=== PATIENT | male | born 1990 | race Caucasian/White ===

== ENCOUNTER 2019-08-29 17:28 | Emergency (ER) | payer SELFPAY ==
--- NOTE | 2019-08-29 19:45 | EDM.PDOCBH ---
ED HPI GENERAL MEDICAL PROBLEM - General Chief Complaint: Drug or Alcohol Abuse Stated Complaint: NEEDS HELP WITH DRUG PROBLEM Time Seen by Provider: 08/29/19 18:57 Source of Information: Reports: Patient History Limitations: Reports: No Limitations - History of Present Illness INITIAL COMMENTS - FREE TEXT/NARRATIVE: This is a 29-year-old male. For the last 4 to 5 years he has been hooked on dextromethorphan. He takes 30 mg tablets 12 of them at a time to get his buzz. He states he takes it 3-4 times a day. Every time he tries to it off the medications he has side effects of sinus congestion anxiety insomnia and just feels horrible and so he started taking them again. He is tried to wean himself off them but he has not been able to do so. Apparently his was able to get off the medication because she was also taking it with him but he is not able to get of it by his self. He comes to the ER because he wants help getting off this medication. He states that there is nothing else going on. He does not want to do inpatient treatment he wants to go home. He denies any recent illnesses colds coughs nausea vomiting. He does have some diarrhea recently because he has been overusing Mylanta because of his heartburn. Left Abdomen Pain Score (Numeric/FACES): 5 - Related Data Allergies Allergy/AdvReac Type Severity Reaction Status Date / Time No Known Allergies Allergy Verified 08/29/19 18:09 Past Medical History Psychiatric History: Reports: Addiction - Past Surgical History HEENT Surgical History: Reports: Oral Surgery Social & Family History - Tobacco Use Smoking Status *Q: Current Every Day Smoker Years of Tobacco use: 13 Packs/Tins Daily: 0.2 - Caffeine Use Caffeine Use: Reports: None - Recreational Drug Use Recreational Drug Use: Yes Drug Use in Last 12 Months: Yes Other Recreational Drug Type: cold medicine Recreational Drug Use Frequency: Daily ED ROS GENERAL - Review of Systems Review Of Systems: See Below Constitutional: Denies: Fever, Chills HEENT: Reports: No Symptoms, Sinus Problem Respiratory: Denies: Shortness of Breath, Cough Cardiovascular: Denies: Chest Pain Endocrine: Reports: No Symptoms GI/Abdominal: Reports: Diarrhea. Denies: Abdominal Pain, Constipation, Nausea, Vomiting : Reports: No Symptoms Musculoskeletal: Reports: No Symptoms Skin: Reports: Other (He has multiple abrasions cuts on his hands and lower legs because he says he fell into a glass door that broke when he was high on his drug of choice.) Neurological: Reports: No Symptoms Psychiatric: Reports: No Symptoms Hematologic/Lymphatic: Reports: No Symptoms ED EXAM, BEHAVIORAL HEALTH - Physical Exam Exam: See Below Exam Limited By: No Limitations General Appearance: Alert, WD/WN, No Apparent Distress Eye Exam: Bilateral Eye: Normal Inspection Ears: Normal External Exam, Normal Canal, Normal TMs Nose: Normal Inspection Throat/Mouth: Normal Inspection, Normal Lips, Normal Voice, No Airway Compromise Head: Normocephalic Neck: Supple, Non-Tender Respiratory/Chest: No Respiratory Distress, Lungs Clear, Normal Breath Sounds Cardiovascular: Regular Rate, Rhythm, No Murmur, Tachycardia GI/Abdominal: Soft, Non-Tender Back Exam: Full Range of Motion Extremities: Other (Has lots of abrasions and a small laceration on his lower legs. Has multiple small abrasions and cuts to his hands noted.) Neurological: Alert, Normal Mood/Affect, CN II-XII Intact, No Motor/Sensory Deficits, Oriented x 3 Psychiatric: Alert, Normal Affect, Normal Cognition, Oriented Skin Exam: Warm, Other (Above for the lacerations and abrasions) COURSE, BEHAVIORAL HEALTH COMP - Course Vital Signs: Last Vital Signs Temp 99.3 F 08/29/19 17:56 Pulse 121 H 08/29/19 17:56 Resp 26 H 08/29/19 17:56 BP 165/112 H 08/29/19 17:56 Pulse Ox 100 08/29/19 17:56 Orders, Labs, Meds: Laboratory Tests 08/29/19 08/29/19 Range/Units 19:30 19:30 WBC 15.72 H (4.23-9.07) K/mm3 RBC 5.46 (4.63-6.08) M/mm3 Hgb 16.7 (13.7-17.5) gm/dl Hct 48.1 (40.1-51.0) % MCV 88.1 (79.0-92.2) fl MCH 30.6 (25.7-32.2) pg MCHC 34.7 (32.2-35.5) g/dl RDW Std Deviation 40.3 (35.1-43.9) fL Plt Count 465 H (163-337) K/mm3 MPV 8.5 L (9.4-12.3) fl Neut % (Auto) 82.5 H (34.0-67.9) % Lymph % (Auto) 10.0 L (21.8-53.1) % [place] % (Auto) 6.9 (5.3-12.2) % Eos % (Auto) 0.1 L (0.8-7.0) Baso % (Auto) 0.2 (0.1-1.2) % Neut # (Auto) 12.98 H (1.78-5.38) K/mm3 Lymph # (Auto) 1.57 (1.32-3.57) K/mm3 [place] # (Auto) 1.08 H (0.30-0.82) K/mm3 Eos # (Auto) 0.01 L (0.04-0.54) K/mm3 Baso # (Auto) 0.03 (0.01-0.08) K/mm3 Manual Slide Review Sodium 141 (136-145) mEq/L Potassium 4.0 (3.5-5.1) mEq/L Chloride 102 (98-107) mEq/L Carbon Dioxide 24 (21-32) mEq/L Anion Gap 19.0 H (5-15) BUN 18 (7-18) mg/dL Creatinine 1.4 H (0.7-1.3) mg/dL Est Cr Clr Drug Dosing 95.58 mL/min Estimated GFR (MDRD) 60 (>60) mL/min BUN/Creatinine Ratio 12.9 L (14-18) Glucose 98 (74-106) mg/dL Calcium 9.1 (8.5-10.1) mg/dL Total Bilirubin 0.6 (0.2-1.0) mg/dL AST 30 (15-37) U/L ALT 38 (16-63) U/L Alkaline Phosphatase 119 H (46-116) U/L Total Protein 8.1 (6.4-8.2) g/dl Albumin 4.4 (3.4-5.0) g/dl Globulin 3.7 gm/dL Albumin/Globulin Ratio 1.2 (1-2) Discharge vs Psych Eval/Treatment:: 08/29/19 20:49 I spoke to the patient at length regarding that this is the right thing to do. Apparently he is been having some difficulty with his and they broke up recently and she is stirring the pot. She apparently called him in the ER and told him he had to tell me that he is suicidal so that they would keep him for 24 hours. The patient however states he is not suicidal and he does not have a plan and he does not want to kill himself he just wants to get off the dextromethorphan. He is set up to see [facility] on Sunday at 8 AM for evaluation. I spoke to Elizabeth who is economic forecaster this evening and she has his phone number and will call him to make sure that he shows up. The patient is good with this. Departure - Departure Time of Disposition: 20:51 Disposition: Home, Self-Care 01 Condition: Fair Clinical Impression: Dextromethorphan use disorder, moderate, dependence - Discharge Information *PRESCRIPTION DRUG MONITORING PROGRAM REVIEWED*: Not Applicable *COPY OF PRESCRIPTION DRUG MONITORING REPORT IN PATIENT HONEY: Not Applicable Referrals: PCP,None [Primary Care Provider] - Forms: ED Department Discharge Additional Instructions: Follow-up with [facility] at 8 AM on Sunday morning for evaluation. I have given you the pamphlet and you have the address and the phone number if you need it. Elizabeth that I spoke with brayan has your phone number and she will call you to make sure you show up. You have 2 days now that you can stay off the dextromethorphan and you have done this before so encourage you not to take any over the weekend until you see them and they can provide medications to help you get off the dextromethorphan. Return to the ER as needed or if there are acute symptoms Sepsis Event Note - Evaluation Sepsis Screening Result: No Definite Risk - Focused Exam Vital Signs: Vital Signs Temp Pulse Resp BP Pulse Ox 08/29/19 17:56 99.3 F 121 H 26 H 165/112 H 100 Date Exam was Performed: 08/29/19 Time Exam was Performed: 20:49
== END 2019-08-29 21:00 | disposition home or self-care (01) ==
LOC: JD.ED 17:28
DX: F11.29 Opioid dependence with unspecified opioid-induced disorder (principal); S61.412A Laceration without foreign body of left hand, initial encounter; S61.411A Laceration without foreign body of right hand, initial encounter; S81.812A Laceration without foreign body, left lower leg, initial encounter; S81.811A Laceration without foreign body, right lower leg, initial encounter; F17.210 Nicotine dependence, cigarettes, uncomplicated; W25.XXXA Contact with sharp glass, initial encounter
CPT/HCPCS: 36415; 80053; 85025; 99282; 99284

== ENCOUNTER 2019-08-30 05:30 | Emergency (ER) | payer SELFPAY ==
--- NOTE | 2019-08-30 06:08 | EDM.PDOCBH ---
ED HPI GENERAL MEDICAL PROBLEM - General Chief Complaint: Behavioral/Psych Stated Complaint: says he is a danger to others Time Seen by Provider: 08/30/19 05:47 Source of Information: Reports: Patient History Limitations: Reports: No Limitations - History of Present Illness INITIAL COMMENTS - FREE TEXT/NARRATIVE: This is a 29-year-old male. He was seen earlier this evening for his dextromethorphan abuse. At that time he told me that he was not suicidal. He did indicate to his that if she were to leave him that he would have no reason to live but he is not suicidal and he has no plan and he does not want to kill himself. I referred him over to [facility] and even spoke to Elizabeth the market research consultantscallop shucker regarding him and he is going to show up Sunday morning at 8 AM for evaluation and help in getting off the dextromethorphan. He says when he went home his freaked out and called the police because she was telling them that he is going to hurt himself or hurt someone else. The police, according to the patient, came to their apartment and looked at the discharge papers and said he was fine and that he was not suicidal and they left. The sent him a text allegedly stating that he is not being honest and that he is mentally unstable and that if he expects to have her come back and live with him that he has to come up to the ER and admit that he is suicidal. So he comes to the ER and he says he is NOT suicidal. He does not know what to do because he wants to save his marriage. He wants a note saying that he is not suicidal and that [facility] is going to help him get off the dextromethorphan. He keeps apologizing because he is here again but he does not know what else to do in an attempt to save his marriage. I point-blank asked him again if he is suicidal and he says no. I asked him if he has a plan of any sort and he says no. At this point time there is nothing that I have available to him other [facility] services to help him get off his drug habit. - Related Data Allergies Allergy/AdvReac Type Severity Reaction Status Date / Time No Known Allergies Allergy Verified 08/29/19 18:09 Past Medical History Psychiatric History: Reports: Addiction - Past Surgical History HEENT Surgical History: Reports: Oral Surgery Social & Family History - Caffeine Use Caffeine Use: Reports: None ED ROS GENERAL - Review of Systems Review Of Systems: See Below Constitutional: Denies: Fever, Chills HEENT: Reports: No Symptoms Respiratory: Denies: Shortness of Breath, Cough Cardiovascular: Denies: Chest Pain Endocrine: Reports: No Symptoms GI/Abdominal: Denies: Abdominal Pain : Reports: No Symptoms Musculoskeletal: Reports: No Symptoms Skin: Reports: Other (For cuts to his hands and his lower legs these are all old ) Neurological: Denies: Confusion, Headache, Trouble Speaking, Difficulty Walking Hematologic/Lymphatic: Reports: No Symptoms ED EXAM, BEHAVIORAL HEALTH - Physical Exam Exam: See Below Exam Limited By: No Limitations General Appearance: Alert, WD/WN, No Apparent Distress Eye Exam: Bilateral Eye: Normal Inspection Ears: Normal External Exam Nose: Normal Inspection Throat/Mouth: Normal Lips, Normal Voice, No Airway Compromise Head: Normocephalic Neck: Supple Respiratory/Chest: No Respiratory Distress GI/Abdominal: Soft Back Exam: Full Range of Motion Extremities: Normal Range of Motion, Other (Old cuts and abrasions to his hands and lower legs) Neurological: Alert, Normal Mood/Affect, Normal Cognition, No Motor/Sensory Deficits, Oriented x 3 Psychiatric: Alert, Normal Affect, Normal Cognition, Normal Mood, Oriented Skin Exam: Warm, Dry COURSE, BEHAVIORAL HEALTH COMP - Course Vital Signs: Last Vital Signs Temp 97.4 F 08/30/19 05:40 Pulse 117 H 08/30/19 05:40 Resp 18 08/30/19 05:40 BP 148/111 H 08/30/19 05:40 Pulse Ox 93 L 08/30/19 05:40 Departure - Departure Time of Disposition: 06:09 Disposition: Home, Self-Care 01 Condition: Fair Clinical Impression: Drug dependence, abuse, Relationship dysfunction, Marital relationship problem - Discharge Information *PRESCRIPTION DRUG MONITORING PROGRAM REVIEWED*: Not Applicable *COPY OF PRESCRIPTION DRUG MONITORING REPORT IN PATIENT HONEY: Not Applicable Instructions: Chemical Dependency, Addiction and the Family Referrals: PCP,None [Primary Care Provider] - Additional Instructions: I have seen this patient twice because his insists that he is suicidal. After talking with the patient I do not find any evidence that he is suicidal but he is very concerned about losing his marraiage and his relationship with his . I would highly suggest that if the is concerned about his mental state that she go with him to [facility] on Sunday morning at 8 AM and tell them her concerns about him. She can also call Elizabeth who is the on-scallop shucker for [facility] at [phone] this weekend and expressed her concerns about Henry. I do not find any suggestion or evidence of suicidal ideation or a plan at this time. I believe that Henry is trying to honest and just wants to save his marriage and get off the dextromethorphan. Since the is asking him to come to the ER and be cleared he has done so. He does indicate that he stated to his that if she left him he would have no reason to live but that is not a suicidal statement or plan but a plea for her to stay. If the has concerns then she needs to come to the ER with Henry and express those concerns and not just send Henry. That way the issues can be clarified and discussed with out having blame and name calling. Sepsis Event Note - Evaluation Sepsis Screening Result: No Definite Risk - Focused Exam Vital Signs: Vital Signs Temp Pulse Resp BP Pulse Ox 08/30/19 05:40 97.4 F 117 H 18 148/111 H 93 L Date Exam was Performed: 08/30/19 Time Exam was Performed: 06:01
== END 2019-08-30 06:42 | disposition home or self-care (01) ==
LOC: JD.ED 05:30
DX: F19.20 Other psychoactive substance dependence, uncomplicated (principal); F68.8 Other specified disorders of adult personality and behavior
CPT/HCPCS: 99283

== ENCOUNTER 2019-08-30 12:53 | Emergency (ER) | payer SELFPAY ==
[2019-08-30] MEDS ORDERED: LORazepam 1 MG Tab PO ONE (13:28)
[2019-08-30] MEDS ORDERED: Ondansetron 4 MG Tab.DIS PO ONE (13:29)
--- NOTE | 2019-08-30 15:28 | EDM.PDOCBH ---
ED HPI GENERAL MEDICAL PROBLEM - General Chief Complaint: Behavioral/Psych Stated Complaint: SENT BY SHERIE Time Seen by Provider: 08/30/19 13:18 Source of Information: Reports: Patient History Limitations: Reports: No Limitations - History of Present Illness INITIAL COMMENTS - FREE TEXT/NARRATIVE: The patient presents for [facility]. He called them today for help stopping using Dextromethoraphan. His and he would use dex to get high for years. She recently left him and he is trying to get off of it. He last used about a day ago. He is anxious. He does not use alcohol much and he does not use other drugs. He has some mile nausea. He has no fever or chills. He has no chest pain or shortness of breath. Onset: Gradual Duration: Day(s): Severity: Mild Improves with: Reports: None Worsens with: Reports: None Associated Symptoms: Reports: Nausea/Vomiting. Denies: Chest Pain, Cough, Fever /Chills, Headaches, Shortness of Breath - Related Data Allergies Allergy/AdvReac Type Severity Reaction Status Date / Time No Known Allergies Allergy Verified 08/30/19 13:09 Home Meds: Home Meds . [No Known Home Meds] 08/30/19 [History] Past Medical History Psychiatric History: Reports: Addiction - Past Surgical History HEENT Surgical History: Reports: Oral Surgery Social & Family History - Caffeine Use Caffeine Use: Reports: None ED ROS GENERAL - Review of Systems Review Of Systems: See Below Constitutional: Reports: No Symptoms HEENT: Reports: No Symptoms Respiratory: Reports: No Symptoms Cardiovascular: Reports: No Symptoms Endocrine: Reports: No Symptoms GI/Abdominal: Reports: Nausea. Denies: Abdominal Pain, Vomiting : Reports: No Symptoms Musculoskeletal: Reports: No Symptoms ED EXAM, BEHAVIORAL HEALTH - Physical Exam Exam: See Below Exam Limited By: No Limitations General Appearance: Alert, No Apparent Distress Ears: Normal External Exam Nose: Normal Inspection Head: Atraumatic, Normocephalic Neck: Normal Inspection Respiratory/Chest: No Respiratory Distress, Lungs Clear, Normal Breath Sounds Cardiovascular: Regular Rate, Rhythm, No Edema, No Murmur GI/Abdominal: Soft, Non-Tender, No Organomegaly, No Mass Back Exam: Normal Inspection Extremities: Normal Inspection COURSE, BEHAVIORAL HEALTH COMP - Course Vital Signs: Last Vital Signs Temp 97.1 F 08/30/19 13:09 Pulse 144 H 08/30/19 13:09 Resp 18 08/30/19 13:09 BP 165/120 H 08/30/19 13:09 Pulse Ox 95 08/30/19 13:09 Orders, Labs, Meds: Active Orders 24 hr Category Date Time Status Cardiac Monitoring [RC] . DIRECTED Care 08/30/19 13:28 Active GC/CHLAMYDIA BY PCR [MOLEC] Stat Lab 08/30/19 14:46 Ordered UA W/MICROSCOPIC [URIN] Stat Lab 08/30/19 14:47 Ordered Laboratory Tests 08/30/19 08/30/19 08/30/19 Range/Units 13:53 13:53 14:10 WBC 14.70 H (4.23-9.07) K/mm3 RBC 5.44 (4.63-6.08) M/mm3 Hgb 16.5 (13.7-17.5) gm/dl Hct 48.0 (40.1-51.0) % MCV 88.2 (79.0-92.2) fl MCH 30.3 (25.7-32.2) pg MCHC 34.4 (32.2-35.5) g/dl RDW Std Deviation 40.4 (35.1-43.9) fL Plt Count 479 H (163-337) K/mm3 MPV 8.6 L (9.4-12.3) fl Neut % (Auto) 75.8 H (34.0-67.9) % Lymph % (Auto) 13.5 L (21.8-53.1) % [place] % (Auto) 10.1 (5.3-12.2) % Eos % (Auto) 0.1 L (0.8-7.0) Baso % (Auto) 0.3 (0.1-1.2) % Neut # (Auto) 11.14 H (1.78-5.38) K/mm3 Lymph # (Auto) 1.99 (1.32-3.57) K/mm3 [place] # (Auto) 1.49 H (0.30-0.82) K/mm3 Eos # (Auto) 0.01 L (0.04-0.54) K/mm3 Baso # (Auto) 0.04 (0.01-0.08) K/mm3 Sodium 138 (136-145) mEq/L Potassium 3.5 (3.5-5.1) mEq/L Chloride 102 (98-107) mEq/L Carbon Dioxide 24 (21-32) mEq/L Anion Gap 15.5 H (5-15) BUN 14 (7-18) mg/dL Creatinine 1.4 H (0.7-1.3) mg/dL Est Cr Clr Drug Dosing 95.58 mL/min Estimated GFR (MDRD) 60 (>60) mL/min BUN/Creatinine Ratio 10.0 L (14-18) Glucose 168 H (74-106) mg/dL Calcium 9.4 (8.5-10.1) mg/dL Total Bilirubin 0.8 (0.2-1.0) mg/dL AST 48 H (15-37) U/L ALT 51 (16-63) U/L Alkaline Phosphatase 121 H (46-116) U/L Total Protein 8.2 (6.4-8.2) g/dl Albumin 4.4 (3.4-5.0) g/dl Globulin 3.8 gm/dL Albumin/Globulin Ratio 1.2 (1-2) TSH 3rd Generation 1.498 (0.358-3.74) uIU/mL Urine Opiates Screen Presumptive positive H (CQJFSO=994) Ur Buprenorphine Scrn Negative (CUTOFF=10) Ur Oxycodone Screen Negative (LRC0SS=794) Urine Methadone Screen Negative (OJL4NL=006) Ur Propoxyphene Screen Negative (XCNJYZ=621) Ur Barbiturates Screen Negative (SWQJEV=125) Ur Tricyclics Screen Negative (BUTUAZ=024) Ur Phencyclidine Scrn Negative (CUTOFF=25) Ur Amphetamine Screen Negative (RXYGVB=845) U Methamphetamines Scrn Negative (BDUNCP=359) U Benzodiazepines Scrn Negative (STEKTA=548) U Cocaine Metab Screen Negative (UAKLHR=308) U Marijuana (THC) Screen Negative (CUTOFF=50) Ethyl Alcohol 0.00 (0.00) gm% Medications Discontinued Medications Generic Name Dose Route Start Last Admin Trade Name Freq PRN Reason Stop Dose Admin Lorazepam 1 mg 08/30/19 13:28 08/30/19 13:37 Ativan PO 08/30/19 13:29 1 mg ONETIME ONE Administration Ondansetron HCl 4 mg 08/30/19 13:29 08/30/19 13:37 Zofran Odt PO 08/30/19 13:30 4 mg ONETIME ONE Administration Re-Assessment/Re-Exam: I ordered labs and gave him some ativan 1mg PO. His WBC was elevated at 14.7. His anion gap is elevated at 15.5. His creatinine is elevated at 1.4. His glucose is elevated at 168. His AST is elevated at 48. His alk phos is elevated at 121. His TSH is negative. His urine drug screen is positive for opiates only. His ETOH is 0. Badbetzaida can take him. I will give him some ativan for withdrawals. Departure - Departure Time of Disposition: 15:30 Disposition: DC/Tfer to Psych Hosp/Unit 65 Condition: Good Clinical Impression: Dextromethorphan use disorder, mild, abuse, Withdrawal complaint - Discharge Information *PRESCRIPTION DRUG MONITORING PROGRAM REVIEWED*: Not Applicable *COPY OF PRESCRIPTION DRUG MONITORING REPORT IN PATIENT HONEY: Not Applicable Referrals: PCP,None [Primary Care Provider] - Additional Instructions: Take ativan 3 times per day for 3 days then 2 times per day for 3 days and then at night for 3 days. Please return if you are worse. Sepsis Event Note - Evaluation Sepsis Screening Result: No Definite Risk - Focused Exam Vital Signs: Vital Signs Temp Pulse Resp BP Pulse Ox 08/30/19 13:09 97.1 F 144 H 18 165/120 H 95 Date Exam was Performed: 08/30/19 Time Exam was Performed: 15:21 - My Orders Last 24 Hours: My Active Orders 08/30/19 13:28 Cardiac Monitoring [RC] . DIRECTED 08/30/19 14:46 GC/CHLAMYDIA BY PCR [MOLEC] Stat 08/30/19 14:47 UA W/MICROSCOPIC [URIN] Stat - Assessment/Plan Last 24 Hours: My Active Orders 08/30/19 13:28 Cardiac Monitoring [RC] . DIRECTED 08/30/19 14:46 GC/CHLAMYDIA BY PCR [MOLEC] Stat 08/30/19 14:47 UA W/MICROSCOPIC [URIN] Stat
[2019-08-30 16:58] LABS: C. TRACHOMATIS BY PCR NOT DETECTED; N. GONORRHOEAE BY PCR NOT DETECTED
== END 2019-08-30 16:00 ==
LOC: JD.ED 12:53
DX: F19.10 Other psychoactive substance abuse, uncomplicated (principal); R11.2 Nausea with vomiting, unspecified
CPT/HCPCS: 36415; 80053; 80306; 80307; 84443; 85025; 87491; 87591; 99283; A9270; 99284

== ENCOUNTER 2019-09-02 04:20 | Emergency (ER) | payer OTHER ==
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
[2019-09-02] MEDS ORDERED: Sodium Chloride 0.9% 1,000 ML IV SCH (04:45)
--- NOTE | 2019-09-02 06:47 | CT ---
Head CT Technique: Multiple axial sections through the brain were obtained. Intravenous contrast was not utilized. Comparison: No prior intracranial imaging is available. Findings: Ventricles along with basal cisterns and sulci over the convexities are within normal limits for the patient's age. No abnormal parenchymal densities are seen. No evidence of intracranial hemorrhage. No midline shift or mass-effect is seen. Bone window settings were reviewed. No acute paranasal sinus findings seen within the visualized sinuses. Visualized mastoid sinuses also show nothing acute. No acute calvarial abnormality is appreciated. Impression: 1. Nothing acute is appreciated on noncontrast head CT exam. Diagnostic code #1 This report was dictated in [place] Standard Time I agree with preliminary report from [facility], finalized on 09/02/19, 6:26 AM Central Time
--- NOTE | 2019-09-02 07:13 | CT ---
CT chest Technique: Multiple axial sections were obtained from above the lung apices inferiorly through the lung bases. Intravenous contrast was utilized. Comparison: No prior chest imaging is available. Findings: Mediastinum and hilar region show no abnormality. Aorta shows no aneurysm. No pericardial effusion is seen. No axillary adenopathy is seen. Lungs are clear with no acute parenchymal change. Minimal dependent atelectasis is present. No pulmonary contusion or pleural effusions are seen. No pneumothorax is identified. Small amount of intrafissural fat seen within the right major fissure which is incidental. Wall thickening seen within the distal esophagus raising the possibility of chronic reflux esophagitis. Bone window settings show no discrete osseous abnormality. Impression: 1. Wall thickening within the distal esophagus suggesting chronic reflux esophagitis. 2. Nothing acute is otherwise appreciated on CT study of the chest. Diagnostic code #3 This report was dictated in [facility] Time I agree with preliminary report from [facility], finalized on 09/02/19, 6:[address] abdomen and pelvis Technique: Multiple axial sections were obtained from above the dome of the diaphragm inferiorly through the pubic symphysis. Intravenous contrast was utilized. No oral contrast has been given. Delayed images were also obtained through the abdomen and pelvis. Comparison: No prior abdominal imaging. Findings: Liver contains no focal parenchymal abnormality. Gallbladder contains no calcified gallstones. Spleen appears within normal limits. Adrenal glands show no nodule. Kidneys show symmetric contrast enhancement without hydronephrosis or mass. Aorta shows no aneurysm. No retroperitoneal adenopathy or mesenteric abnormalities are seen. No pelvic mass or adenopathy is seen. Appendix is seen which is normal in size. No free fluid or inflammatory change is seen. Small calcification identified within the posterior bladder. Delayed images show contrast within the collecting systems and ureters. Contrast also noted within the bladder. Bone window settings were reviewed. No acute osseous finding is appreciated. Small fat-containing umbilical hernia is noted. Impression: 1. Small bladder calculus most likely representing previous ureteral stone that has passed. 2. Nothing acute is appreciated on CT study of the abdomen and pelvis. Diagnostic code #2 This report was dictated in [facility] Time I agree with preliminary report from [facility], finalized on 09/02/19, 7:02 AM Central Time
--- NOTE | 2019-09-02 07:13 | CT ---
CT cervical spine Technique: Multiple axial sections were obtained from above C1 inferiorly to the bottom of T2. Reconstructed sagittal and coronal images were reviewed. Comparison: No prior cervical spine imaging is available. Vertebral body heights and disc spaces are maintained. Vertebral bodies and posterior arches are intact with no fracture being seen. No bony central or bony neural foraminal stenosis is seen. No abnormal subluxation is appreciated. Impression: 1. Nothing acute is seen on CT study of the cervical spine. Diagnostic code #1 This report was dictated in [place] Standard Time I agree with preliminary report from [facility], finalized on 09/02/19, 6:15 AM Central Time
--- NOTE | 2019-09-02 07:38 | CR ---
Cervical spine: Flexion and extension lateral views of the cervical spine were obtained. Comparison: No prior cervical spine imaging. Vertebral body heights and disc spaces are maintained. Prevertebral soft tissues are normal. No subluxation or discrete fracture is appreciated. Impression: 1. No abnormality is appreciated on flexion and extension lateral views of the cervical spine. Diagnostic code #1 This report was dictated in [place] Standard Time
== END 2019-09-02 07:27 | disposition home or self-care (01) ==
LOC: JD.ED 04:20
DX: S16.1XXA Strain of muscle, fascia and tendon at neck level, initial encounter (principal); F17.210 Nicotine dependence, cigarettes, uncomplicated; V40.5XXA Car driver injured in collision with pedestrian or animal in traffic accident, initial encounter; Y92.410 Unspecified street and highway as the place of occurrence of the external cause
CPT/HCPCS: 36415; 70450; 71260; 72040; 72125; 74177; 80053; 80307; 85007; 85027; 85610; 85730; 96360; 96361; 99284; J7030; 99283